=== PATIENT | male | born 1940 | race Caucasian/White ===

== ENCOUNTER 2024-11-17 20:53 | Inpatient (IN) | payer MEDICARE, MEDICAID ==
[~2024-11-17] VITALS: Ht 172.7 cm; Wt 90.0 kg
[2024-11-17 22:26] LABS: BASOPHILS % (AUTO) 0.4 % (0.0-2.0); EOSINOPHILS % (AUTO) 0.8 % (1.0-6.0); HEMATOCRIT 33.5 % (41-53); HEMOGLOBIN 11.3 g/dL (13.5-17.5); LYMPHOCYTES # (AUTO) 1.2 K/uL (1.0-4.8); LYMPHOCYTES % (AUTO) 10.7 % (22.0-44.0); MEAN CORPUSCULAR HEMOGLOBIN 33.3 pg (26.0-34.0); MEAN CORPUSCULAR HGB CONC 33.6 G/dL (31.0-37.0); MEAN CORPUSCULAR VOLUME 99 fL (80-100); MONOCYTES # (AUTO) 1.1 K/uL (0.1-1.0); MONOCYTES % (AUTO) 9.6 % (2.0-9.0); NEUTROPHILS # (AUTO) 9.1 K/uL (1.8-7.7); NEUTROPHILS % (AUTO) 78.5 % (40.0-70.0); PLATELET COUNT (AUTO) 317 K/uL (150-450); RED BLOOD CELL COUNT(AUTO) 3.38 MIL/uL (4.50-5.90); RED CELL DISTRIBUTION WIDTH 14.1 % (11.5-14.5); WHITE BLOOD COUNT (AUTO) 11.6 K/uL (4.5-11.0)
[2024-11-17 22:33] LABS: CALCIUM, TOTAL 9.1 mg/dL (8.8-10.5); CREATININE 1.16 mg/dL (0.60-1.30); POTASSIUM 4.4 mmol/L (3.5-5.1)
[2024-11-17 22:40] LABS: ALBUMIN 2.2 g/dL (3.4-5.0); BILIRUBIN,DIRECT 0.1 mg/dL (0.00-0.20); BILIRUBIN,TOTAL 0.4 mg/dL (0.1-1.0); TOTAL PROTEIN, SERUM 6.3 g/dL (6.4-8.2)
[2024-11-18] MEDS: SODIUM PHOSPHATE,MONO-DIBASIC 133 ML ENEMA PR ONE (02:30)
[2024-11-18 06:30] VITALS: BP 157/80; PULSE 79; RESP 18; TEMP 98.2; O2SAT 0
[2024-11-18] MEDS: ACETAMINOPHEN 325 MG TABLET PO PRN ×2 (08:01→17:54)
[2024-11-18 08:53] VITALS: BP 136/70; PULSE 68; RESP 18; TEMP 98.6; O2SAT 97
[2024-11-18] MEDS: POLYETHYLENE GLYCOL 3350 17 GM PACKET PO SCH (10:14)
[2024-11-18] MEDS ORDERED: ATEN-188 PO (10:36)
[2024-11-18] MEDS ORDERED: DULO20CA71 PO (10:36)
[2024-11-18] MEDS ORDERED: CYAN100084 PO (10:36)
[2024-11-18] MEDS ORDERED: LISI-663 PO (10:36)
[2024-11-18] MEDS ORDERED: ASPI-1444 PO (10:36)
[2024-11-18] MEDS ORDERED: HYDR25TA2 PO (10:36)
[2024-11-18] MEDS ORDERED: GABA-1216 PO (10:36)
[2024-11-18] MEDS ORDERED: EMPA10TA3 PO (10:36)
[2024-11-18] MEDS ORDERED: DOCU240C25 PO (10:36)
[2024-11-18] MEDS ORDERED: METF-1211 PO ×2 (10:36)
[2024-11-18] MEDS ORDERED: LOVA-74 PO (10:36)
[2024-11-18] MEDS ORDERED: CHOL25TA4 PO (10:36)
[2024-11-18] MEDS ORDERED: ONDANSETRON HCL 4 MG/2 ML VIAL IVP PRN (10:45)
[2024-11-18] MEDS ORDERED: BISACODYL 10 MG RECTAL RECTAL SUPPOSITORY PR PRN (10:45)
[2024-11-18] MEDS: DEXTROSE 5%-0.45% SODIUM CHL 1,000 ML IV SCH (12:08)
[2024-11-18 16:16] VITALS: BP 108/60; PULSE 71; RESP 18; TEMP 98.5; O2SAT 95
[2024-11-18] MEDS: HEPARIN SODIUM,PORCINE 5,000 UNITS/ML VIAL SQ SCH (16:55)
[2024-11-18] MEDS: MAGNESIUM HYDROXIDE SUSPENSION 30 ML UDCUP PO PRN (16:55)
[2024-11-18] MEDS: MetFORMIN HCL 500 MG TABLET PO SCH (16:56)
[2024-11-18] MEDS: GABAPENTIN 100 MG CAPSULE PO SCH (16:56)
[2024-11-18 19:16] VITALS: BP 117/61; PULSE 76; RESP 18; TEMP 98.6; O2SAT 96
[2024-11-18 20:12] VITALS: BP 124/79; PULSE 77; RESP 18; TEMP 98; O2SAT 98
[2024-11-18] MEDS: MORPHINE SULFATE 2 MG/ML SYRINGE IVP PRN (20:13)
[2024-11-18] MEDS: CHOLECALCIFEROL (VIT D3) 1,000 UNITS [25 MCG] TABLET PO SCH (20:48)
[2024-11-18] MEDS: DOCUSATE SODIUM 100 MG CAPSULE PO SCH (20:49)
[2024-11-18] MEDS: ZOLPIDEM TARTRATE 5 MG TABLET PO PRN (21:10)
[2024-11-18] MEDS: HYDROCODONE/ACETAMINOPHEN 5-325 MG TABLET PO PRN (22:54)
[2024-11-19 03:00] VITALS: BP 113/66; PULSE 67; RESP 18; TEMP 97.6; O2SAT 95
[2024-11-19 06:47] LABS: BASOPHILS % (AUTO) 0.3 % (0.0-2.0); EOSINOPHILS % (AUTO) 1.2 % (1.0-6.0); HEMATOCRIT 33.5 % (41-53); HEMOGLOBIN 11.5 g/dL (13.5-17.5); LYMPHOCYTES # (AUTO) 1.4 K/uL (1.0-4.8); LYMPHOCYTES % (AUTO) 16.8 % (22.0-44.0); MEAN CORPUSCULAR HEMOGLOBIN 34.1 pg (26.0-34.0); MEAN CORPUSCULAR HGB CONC 34.5 G/dL (31.0-37.0); MEAN CORPUSCULAR VOLUME 99 fL (80-100); MONOCYTES # (AUTO) 0.9 K/uL (0.1-1.0); MONOCYTES % (AUTO) 10.2 % (2.0-9.0); NEUTROPHILS # (AUTO) 6.1 K/uL (1.8-7.7); NEUTROPHILS % (AUTO) 71.5 % (40.0-70.0); PLATELET COUNT (AUTO) 322 K/uL (150-450); RED BLOOD CELL COUNT(AUTO) 3.38 MIL/uL (4.50-5.90); RED CELL DISTRIBUTION WIDTH 13.7 % (11.5-14.5); WHITE BLOOD COUNT (AUTO) 8.6 K/uL (4.5-11.0)
[2024-11-19 06:54] LABS: ANION GAP 4 mmol/L (8-16); CALCIUM, TOTAL 9.1 mg/dL (8.8-10.5); CARBON DIOXIDE 31 mmol/L (22-29); CHLORIDE 102 mmol/L (98-107); CREATININE 0.89 mg/dL (0.60-1.30); GLOMERULAR FILTR. RATE CALC > 60 mL/min (>60); GLUCOSE,RANDOM 141 mg/dL (70-110); SODIUM SERUM 137 mmol/L (136-145); UREA NITROGEN, BLOOD 24 mg/dL (7-18)
[2024-11-19 07:56] VITALS: BP 127/61; PULSE 64; RESP 19; TEMP 98.3; O2SAT 97
[2024-11-19] MEDS: LOVASTATIN 20 MG TABLET PO SCH (08:46)
[2024-11-19] MEDS: LISINOPRIL 20 MG TABLET PO SCH (08:46)
[2024-11-19] MEDS: ATENOLOL 50 MG TABLET PO SCH (08:47)
[2024-11-19] MEDS: EMPAGLIFLOZIN 10 MG TABLET PO SCH (08:47)
[2024-11-19] MEDS: DULoxetine HCL 20 MG CAPSULE PO SCH (08:47)
[2024-11-19] MEDS: CYANOCOBALAMIN 500 MCG TABLET PO SCH (08:48)
[2024-11-19] MEDS: PANTOPRAZOLE SODIUM 40 MG DR TABLET PO SCH (08:48)
[2024-11-19] MEDS: ASPIRIN 81 MG DR TABLET PO SCH (08:49)
[2024-11-19] MEDS: HYDROCHLOROTHIAZIDE 25 MG TABLET PO SCH (08:49)
[2024-11-19] MEDS: MINERAL OIL 133 ML ENEMA PR SCH (11:19)
[2024-11-19 16:09] VITALS: BP 108/65; PULSE 59; RESP 18; TEMP 98.1; O2SAT 97
[2024-11-19 19:57] VITALS: BP 119/66; PULSE 60; RESP 20; TEMP 97.9; O2SAT 96
[2024-11-20 03:58] VITALS: BP 114/51; PULSE 60; RESP 18; TEMP 98; O2SAT 94
[2024-11-20 07:44] LABS: BASOPHILS % (AUTO) 0.8 % (0.0-2.0); EOSINOPHILS % (AUTO) 2.5 % (1.0-6.0); HEMATOCRIT 32.7 % (41-53); HEMOGLOBIN 11.1 g/dL (13.5-17.5); LYMPHOCYTES # (AUTO) 1.4 K/uL (1.0-4.8); LYMPHOCYTES % (AUTO) 17.5 % (22.0-44.0); MEAN CORPUSCULAR HEMOGLOBIN 33.7 pg (26.0-34.0); MEAN CORPUSCULAR VOLUME 99 fL (80-100); MONOCYTES # (AUTO) 0.8 K/uL (0.1-1.0); MONOCYTES % (AUTO) 10.6 % (2.0-9.0); NEUTROPHILS # (AUTO) 5.5 K/uL (1.8-7.7); NEUTROPHILS % (AUTO) 68.6 % (40.0-70.0); PLATELET COUNT (AUTO) 321 K/uL (150-450); RED CELL DISTRIBUTION WIDTH 13.9 % (11.5-14.5)
[2024-11-20 07:52] LABS: ANION GAP 7 mmol/L (8-16); CALCIUM, TOTAL 8.7 mg/dL (8.8-10.5); CARBON DIOXIDE 30 mmol/L (22-29); CHLORIDE 101 mmol/L (98-107); CREATININE 0.82 mg/dL (0.60-1.30); GLOMERULAR FILTR. RATE CALC > 60 mL/min (>60); GLUCOSE,RANDOM 127 mg/dL (70-110); POTASSIUM 3.8 mmol/L (3.5-5.1); SODIUM SERUM 138 mmol/L (136-145); UREA NITROGEN, BLOOD 21 mg/dL (7-18)
[2024-11-20 08:06] VITALS: BP 132/71; PULSE 58; RESP 18; TEMP 97.8; O2SAT 97
[2024-11-20] MEDS ORDERED: MAGNESIUM CITRATE [LEMON] 300 ML ORAL SOLUTION PO ONE (12:15)
[2024-11-20] MEDS ORDERED: SENNOSIDES 8.8 MG/5 ML SYRUP UDCUP PO ONE (12:15)
[2024-11-20] MEDS: DEXTROSE 5%-LACTATED RINGERS 1,000 ML IV SCH (12:15)
[2024-11-20] MEDS: CLINDAMYCIN 600 MG/D5% WATER 50 ML IV ONE (13:47)
[2024-11-20 15:06] VITALS: BP 118/54; PULSE 55; RESP 18; TEMP 97.8; O2SAT 96
[2024-11-20] MEDS: PEG 3350/NA SULF,BICARB,CL/KCL 4000 ML SOLUTION PO ONE (15:11)
[2024-11-20] MEDS: KETOROLAC TROMETHAMINE 30 MG/ML VIAL IVP SCH (16:49)
[2024-11-20 20:00] VITALS: BP 125/55; PULSE 55; RESP 18; TEMP 98.1; O2SAT 98
[2024-11-20] MEDS: DOCUSATE SODIUM 100 MG CAPSULE PO SCH (20:33)
[2024-11-20] MEDS: KETOROLAC TROMETHAMINE 15 MG/ML VIAL IVP SCH (23:46)
[2024-11-21 04:00] VITALS: BP 125/62; PULSE 65; RESP 20; TEMP 98.2; O2SAT 95
[2024-11-21 08:06] LABS: EOSINOPHILS % (AUTO) 2.8 % (1.0-6.0); HEMATOCRIT 31.9 % (41-53); HEMOGLOBIN 11.2 g/dL (13.5-17.5); LYMPHOCYTES # (AUTO) 1.3 K/uL (1.0-4.8); LYMPHOCYTES % (AUTO) 19.4 % (22.0-44.0); MEAN CORPUSCULAR HEMOGLOBIN 34.2 pg (26.0-34.0); MEAN CORPUSCULAR HGB CONC 34.9 G/dL (31.0-37.0); MEAN CORPUSCULAR VOLUME 98 fL (80-100); MONOCYTES # (AUTO) 0.7 K/uL (0.1-1.0); MONOCYTES % (AUTO) 10.3 % (2.0-9.0); NEUTROPHILS # (AUTO) 4.6 K/uL (1.8-7.7); NEUTROPHILS % (AUTO) 66.5 % (40.0-70.0); PLATELET COUNT (AUTO) 272 K/uL (150-450); RED BLOOD CELL COUNT(AUTO) 3.26 MIL/uL (4.50-5.90); RED CELL DISTRIBUTION WIDTH 13.7 % (11.5-14.5); WHITE BLOOD COUNT (AUTO) 6.9 K/uL (4.5-11.0)
[2024-11-21 08:15] VITALS: BP 112/53; PULSE 64; RESP 18; TEMP 98; O2SAT 96
[2024-11-21 08:22] LABS: ANION GAP 6 mmol/L (8-16); CALCIUM, TOTAL 8.5 mg/dL (8.8-10.5); CARBON DIOXIDE 28 mmol/L (22-29); CHLORIDE 100 mmol/L (98-107); CREATININE 0.81 mg/dL (0.60-1.30); GLOMERULAR FILTR. RATE CALC > 60 mL/min (>60); GLUCOSE,RANDOM 142 mg/dL (70-110); POTASSIUM 3.6 mmol/L (3.5-5.1); SODIUM SERUM 134 mmol/L (136-145); UREA NITROGEN, BLOOD 16 mg/dL (7-18)
[2024-11-21] MEDS ORDERED: KETO10TA2 PO (10:18)
[2024-11-21] MEDS ORDERED: POLY17PO47 PO (10:18)
[2024-11-21] MEDS ORDERED: ACET-3385 PO (10:18)
[2024-11-21] MEDS ORDERED: FAMO20 PO (10:20)
[2024-11-21 16:10] VITALS: BP 121/59; PULSE 66; RESP 18; TEMP 98.1; O2SAT 98
[2024-11-22 19:27] LABS: GLUCOMETER DEV NAME(LOC) 4E.2; GLUCOSE,POINT OF CARE 333 MG/DL (70-110)
== END 2024-11-21 17:00 | DRG 392 ==
LOC: EMS 20:53 → EDH 11-18 05:47 → 6S 11-18 06:25 → 4E 11-18 18:47
PROVIDERS: ADMIT Internal Medicine; ATTEND Internal Medicine
DX: K52.89 Other specified noninfective gastroenteritis and colitis (principal); K56.41 Fecal impaction; I10 Essential (primary) hypertension; E78.5 Hyperlipidemia, unspecified; E11.9 Type 2 diabetes mellitus without complications; F41.9 Anxiety disorder, unspecified; T40.695A Adverse effect of other narcotics, initial encounter; M54.50 Low back pain, unspecified; Y92.89 Other specified places as the place of occurrence of the external cause
CPT/HCPCS: 72125; 72131; 74018; 74022; 74176; 80048; 80076; 82962; 85025; 87081; 87481; 97110; 97163; 99285; G0378; J1644; J1885; J2270; J3490; 36415-L1; 36415-TC